=== PATIENT | male | born 1980 | race Caucasian/White ===

== ENCOUNTER 2017-03-22 00:15 | Inpatient (IN) ==
[2017-03-22] MEDS ORDERED: NS 1,000 ML IV ONE ×2 (03:09→09:45)
[2017-03-22] MEDS ORDERED: SOLU-MEDROL IV ONE (03:10)
[2017-03-22] MEDS ORDERED: BENADRYL IV ONE (03:11)
[2017-03-22] MEDS ORDERED: DUONEB (A & A) INH ONE (03:11)
[2017-03-22] MEDS ORDERED: ZANTAC PO ONE (03:11)
[2017-03-22 05:20] LABS: MANUAL DIFF NEEDED? NO
[2017-03-22 05:40] LABS: AGAP 15; ALBUMIN 3.5 g/dL (3.5-5.0); ALKALINE PHOSPHATASE 46 U/L (32-122); BUN 15 mg/dL (8-22); CALCIUM 7.8 mg/dL (8.8-10.2); CHLORIDE 102 mmol/L (98-107); COSMO 281; GOT 18 U/L (10-34); GPT 34 U/L (10-44); POTASSIUM 4.5 mmol/L (3.5-5.1); SODIUM 139 mmol/L (136-145); TCO2 22 mmol/L (25-35); TOTAL BILIRUBIN 0.32 mg/dL (0.20-1.00); TOTAL PROTEIN 6.5 g/dL (6.3-8.3)
--- NOTE | 2017-03-22 05:50 | EKG Report ---
Test Performed on : 03/22/2017 00:22:35 AM Test Reason : No Order in [facility] Blood Pressure : / mmHG Vent. Rate : 082 BPM Atrial Rate : 082 BPM P-R Int : 144 ms QRS Dur : 082 ms QT Int : 334 ms P-R-T Axes : 028 -02 025 degrees QTc Int : 390 ms Normal sinus rhythm. Minimal voltage criteria for LVH, may be normal variant Borderline ECG No previous ECGs available Unconfirmed Result
[2017-03-22 07:05] LABS: BASO% 0.3 % (0.0-0.8); EOS# 0.03 X1000 (0.0-0.7); EOS% 0.3 % (0.0-10.0); HEMATOCRIT 40.4 % (42.0-52.0); HEMOGLOBIN 13.9 g/dL (14.0-18.0); IMM GRAN# 0.05 X1000 (0.0-0.04); IMM GRAN% 0.5 % (0.0-0.5); LYMPH# 0.97 X1000 (1.2-3.4); LYMPH% 10.2 % (20.5-51.1); MCHC 34.4 g/dL (33-37); MONO% 8.4 % (1.7-9.3); MPV 10.5 FL (7.4-10.4); NEUT% 80.3 % (42.2-75.2); PLT 163 X1000 (130-400); RBC 4.49 XMIL (4.7-6.1)
[2017-03-22 07:25] LABS: URINE CULTURE NEEDED? NO; URINE MICRO REVIEW NEEDED? NO; URINE SOURCE CLEAN CATCH
[2017-03-22 07:29] LABS: ALLEN TEST YES; BE -0.8 mmoll (-3.0-3.0); BLOOD TYPE ARTERIAL; DRAW SITE L RADIAL; METHB 1.4 % (0.0-1.5); MODALITY ROOM AIR; O2(CT) 19.6 mL/dL (15.0-23.0); PCO2(98.6) 30 mmHg (35-45); PO2(98.6) 92 mmHg (60-100); SAMPLE BLOOD; SAO2 98.5 % (95.0-100.0); THB 14.7 g/dL (11.5-17.4); pH(98.6) 7.47 (7.35-7.45)
[2017-03-22 07:29] LABS: BILIRUBIN URINE NEGATIVE (NEGATIVE); BLOOD URINE NEGATIVE (NEGATIVE); COLOR YELLOW; GLUCOSE URINE 150 mg/dL (NEGATIVE); LEUKOCYTES URINE NEGATIVE (NEGATIVE); NITRITE URINE NEGATIVE (NEGATIVE); PROTEIN URINE NEGATIVE (NEGATIVE); SP GRAVITY URINE 1.017; TURBIDITY URINE CLEAR (CLEAR); UROBILINOGEN URINE NORMAL (NORMAL)
[2017-03-22 07:31] LABS: UR EPITHELIAL CELLS <10 /HPF (<10); URINE BACTERIA NEGATIVE /HPF; URINE RBC <10 /HPF (<10); URINE WBC <10 /HPF (<10)
--- NOTE | 2017-03-22 07:34 | Diag Imaging Result Doc PS360 ---
CHEST-PORTABLE - 03/22/2017 INDICATION: allergic reaction, wheezing TECHNIQUE: COMPARISON: None FINDINGS: The lungs are normally expanded and clear. Heart size and mediastinal contours are normal. No pneumothorax or pleural effusion. IMPRESSION: Negative exam. Electronically signed by Ede Quiros 03/22/2017 7:32 AM
[2017-03-22 07:37] LABS: UR AMPHETAMINES QUAL NONE DETECTED (NONE DETECT); UR BARBITUATES QUAL NONE DETECTED (NONE DETECT); UR BENZODIAZEPIN QUAL NONE DETECTED (NONE DETECT); UR CANNABINOIDS QUAL NONE DETECTED (NONE DETECT); UR COCAINE QUAL NONE DETECTED (NONE DETECT); UR METHADONE QUAL NONE DETECTED (NONE DETECT); UR OPIATES QUAL NONE DETECTED (NONE DETECT); UR OXYCODONE QUAL NONE DETECTED (NONE DETECT); UR PCP QUAL NONE DETECTED (NONE DETECT)
[2017-03-22] MEDS ORDERED: LEVAQUIN 750 MG/D5W 750 MG/150 ML IVPB IV ONE (08:21)
[2017-03-22] MEDS ORDERED: VANCOMYCIN 1 GM/NS 1 GM/250 ML IVPB IV ONE (08:21)
[2017-03-22] MEDS ORDERED: ROCEPHIN 1 GM in NS 50 ML IV ONE (09:42)
[2017-03-22] MEDS ORDERED: BENADRYL IV PRN (09:44)
[2017-03-22] MEDS ORDERED: SODIUM CHLORIDE 0.9% INJ SCH (09:45)
[2017-03-22] MEDS: PEPCID IV SCH (09:45)
[2017-03-22] MEDS ORDERED: ZYRTEC LIQUID PO ONE (09:56)
[2017-03-22] MEDS ORDERED: CHLORASEPTIC SPRAY MT PRN (09:58)
[2017-03-22] MEDS: ADVAIR 500/50 DISKUS INH SCH (10:00)
--- NOTE | 2017-03-22 10:56 | HISTORY AND PHYSICAL ---
HISTORY OF PRESENT ILLNESS: This is a 36-year-old. 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 He stated that on Saturday he came home and felt bad, throat was sore but just kind of aching all over and had fever. Fever got up at times. Temperature 102 degrees. They went to the emergency room in [place]. They gave him Z-West and a Medrol Dosepak because of his sore throat, and then he broke out in welts and rash. This rash got a little better but Saturday went back to the emergency room, and they gave him amoxicillin, and I think they gave him some more steroid. Again, he had welts following that and more rash and just has not really gotten better. His throat is sore. It has worsened. He has swelling. Concerned about some apnea. His feels he already has sleep apnea but, with his throat being swollen, she can appreciate a lot more apnea now. In the emergency room, he has pustules in the back of his throat. I did not appreciate cervical adenopathy in either carotid chain, supraclavicular, axillary or femoral, but he appears to have a viral upper respiratory or oral pharyngitis, and its a possibility of herpetic rash. We are going to culture his throat and culture his nasopharynx but put him empirically on some IV Solu-Medrol as well as some H2 blockers. We will also let him have some Benadryl for H1 histamine blockade and put him on acyclovir 10 mg/kg q. 8 hours. I am going to cover him for possible bacterial oral pharyngitis with Rocephin. PAST MEDICAL HISTORY: Pretty unremarkable. No significant medical problems. ALLERGIES: There is a question on these 2 antibiotics that he had with him. I do not think he has a true allergy to them. I am going to avoid the amoxicillin Z-West, but I am not convinced that he has had an allergic reaction to that. SURGICAL HISTORY: He has had bilateral tubes in his ears. SOCIAL HISTORY: He works at [employer]. He does have a dog. He is . No children. They live in [place]. He does smoke about a half pack per day which he has done for 16 years. FAMILY HISTORY: No history of coronary artery disease or of increased respiratory infections or autoimmune disorders. REVIEW OF SYSTEMS: He did not report any weight gain or loss, although he has not eaten or drank very well since Saturday, has just not felt well. No change in his hearing. He has a history of bilateral tubes in the past, tympanoplasty. No change in his vision. Oropharynx: He has about a dozen pustules that vary from 0.3 to 0.6 cm and very tender. Respiratory: He struggles mainly when he is sleeping, but he does feel like his throat is swollen at times, worked to move air, and he does complain of his tongue being swollen and lips were swollen this last week. Cardiovascular: No chest pain or tachy palpitation. GI and : GI: He has not had any gross hematuria, dysuria. : No hematuria and no dysuria reported. Endocrinologic/hematologic. He has no history of thyroid issues or adrenal problems or cortisone deficiency. Skin: As described above, he has had welts and he has a fine erythematous rash over his belly and his legs. PHYSICAL EXAMINATION: VITAL SIGNS: Temperature 98.5 degrees, pulse 80, respirations 20, blood pressure 134/88. HEENT: Pupils are equal, round. Oropharynx: He has about a dozen pustules that vary from 0.3 to 0.6 cm and very tender. LUNGS: Clear in all lung anton. CARDIOVASCULAR: Regular rate without murmur or S3. ABDOMEN: Soft. No hepatojugular reflux. No hepatosplenomegaly. He has little fine erythematous rash over his belly, proximal thighs, around his groin. No urticaria that I can appreciate. No adenopathy. No cervical, axillary, supraclavicular or femoral adenopathy. Lungs are clear in all lung anton is noted. No edema. LABORATORY DATA: White count 9540, hematocrit 40, platelet count 163,000. Chemistry: Sodium 139, potassium 4.5, chloride 102. BUN 15, creatinine 1.1. Liver functions unremarkable. ASSESSMENT AND PLAN: Oral pharyngitis. I suspect this is viral. I could not rule out though Streptococcal group A strep, and he has a little fine rash on his belly and that could be a scarlet-like rash that you could see with Streptococcus. I am going to cover him for herpetic with acyclovir 10 mg/kg q. 8. I am going to give him Rocephin. He was given several antibiotics here in the emergency room. Recently, had some azithromycin and amoxicillin and, we will give him IV Solu-Medrol, IV H2 blockers as well as let him have some Benadryl 50 mg q. 6 hours p.r.n. He has been loaded with Solu-Medrol 125 mg. We will give him 80 mg IV q. 8 hours. Give him fluids and normal saline 125 mL an hour. Culture his throat and nasopharynx. He is moving air fairly well but he has potential for stridor and 4 more swelling in his throat, so I think we have to be aggressive, and I think he needs to be in [facility]. He does also have reports of sleep apnea, and I think as an outpatient he is going to have to have some sleep studies. We will put him on some supplemental O2 for now. I think it would be worthwhile to follow his blood gas and maybe check another tomorrow. Blood gases today: pH was 7.47, pCO2 of 30, PO2 of 92, O2 saturation 98%. Will run normal saline at 125 mL an hour. cc: Alexey Hunter MD
[2017-03-22] MEDS ORDERED: NS 1,000 ML ONE (11:04)
--- NOTE | 2017-03-22 11:35 | Diag Imaging Result Doc PS360 ---
CT NECK W/WO CONTRAST - 03/22/2017 INDICATION: r/o abscess; swollen throat w multiple pustules TECHNIQUE: A CT dose reduction protocol was used. COMPARISON: None FINDINGS: On the noncontrast exam, there are no abnormal calcifications. On the contrast enhanced exam, the lingual tonsils are slightly enlarged bilaterally. No abnormal fluid collections. No surrounding edema. There are some prominent bilateral reactive lymph nodes in the upper cervical chain. The thyroid gland is normal. The airway is clear. The sinuses are clear. IMPRESSION: Tonsillitis. Reactive cervical lymph nodes. No abscess or complication. Electronically signed by Ede Quiros 03/22/2017 11:32 AM
[2017-03-22] MEDS: ZOVIRAX IV SCH ×2 (11:40→20:32)
[2017-03-22] MEDS: NS IV SCH ×2 (11:40→20:32)
[2017-03-22] MEDS: SOLU-MEDROL IV SCH ×2 (12:00→20:10)
[2017-03-22] MEDS ORDERED: LEVAQUIN 750 MG/D5W 750 MG/150 ML IVPB ONE (12:54)
[2017-03-22] MEDS ORDERED: ROCEPHIN ONE (14:36)
[2017-03-22] MEDS ORDERED: NS 50 ML ONE (14:37)
[2017-03-22] MEDS ORDERED: TYLENOL PO PRN (15:14)
[2017-03-22] MEDS: DUONEB (A & A) INH SCH ×4 (15:14→23:28)
[2017-03-22] MEDS ORDERED: ZOFRAN IV PRN (15:14)
[2017-03-23] MEDS: PEPCID IV SCH ×2 (01:27→12:13)
[2017-03-23] MEDS: DUONEB (A & A) INH SCH ×6 (04:02→23:28)
[2017-03-23] MEDS: ZOVIRAX IV SCH ×3 (04:40→20:20)
[2017-03-23] MEDS: NS IV SCH ×3 (04:40→20:20)
[2017-03-23] MEDS: SOLU-MEDROL IV SCH ×3 (04:40→18:30)
[2017-03-23 05:24] LABS: BASO% 0.4 % (0.0-0.8); HEMATOCRIT 41.3 % (42.0-52.0); HEMOGLOBIN 14.2 g/dL (14.0-18.0); IMM GRAN# 0.14 X1000 (0.0-0.04); IMM GRAN% 1.5 % (0.0-0.5); LYMPH# 1.02 X1000 (1.2-3.4); LYMPH% 11.1 % (20.5-51.1); MANUAL DIFF NEEDED? YES; MCH 30.6 PG (27-31); MCHC 34.4 g/dL (33-37); MONO# 1.06 X1000 (0.11-0.59); MONO% 11.5 % (1.7-9.3); NEUT% 75.5 % (42.2-75.2); PLT 173 X1000 (130-400); RBC 4.64 XMIL (4.7-6.1)
[2017-03-23 05:32] LABS: INR 1.01; PROTIME 10.6 Seconds (9.2-11.7); PTT 24.2 Seconds (22.0-36.0)
[2017-03-23 05:35] LABS: HEMOGLOBIN A1C 7.4 % (4.8-6.0)
[2017-03-23 05:39] LABS: BANDS 2 % (0-1); EOS 2 % (1-10); LYMPHS 8 % (21-51); MONO 16 % (1-9)
[2017-03-23 05:41] LABS: AGAP 19; ALBUMIN 3.5 g/dL (3.5-5.0); ALKALINE PHOSPHATASE 47 U/L (32-122); BUN 15 mg/dL (8-22); CALCIUM 8.6 mg/dL (8.8-10.2); CHLORIDE 98 mmol/L (98-107); COSMO 283; GOT 20 U/L (10-34); GPT 38 U/L (10-44); MAGNESIUM 2.2 mg/dL (1.5-2.7); SODIUM 138 mmol/L (136-145); TCO2 21 mmol/L (25-35); TOTAL BILIRUBIN 0.35 mg/dL (0.20-1.00); TOTAL PROTEIN 6.7 g/dL (6.3-8.3)
[2017-03-23 05:59] LABS: FREE T4 0.93 ng/dL (0.93-1.70)
[2017-03-23] MEDS: ADVAIR 500/50 DISKUS INH SCH (07:26)
--- NOTE | 2017-03-23 08:27 | Diag Imaging Result Doc PS360 ---
EXAM: CHEST-2 VIEWS HISTORY: sob TECHNIQUE: Two views the chest COMMENT: There is no evidence of acute cardiac or pulmonary disease. Compared to 03/22/2017 there is been no significant change in the appearance of the chest. IMPRESSION: No acute disease. Electronically signed by Ronal Zuleta 03/23/2017 8:25 AM
[2017-03-23 08:52] LABS: HEPATITIS PROFILE ACUTE SEE COMMENTS
[2017-03-23] MEDS: ROCEPHIN 1 GM in NS 50 ML IV SCH (09:16)
[2017-03-23] MEDS: ZYRTEC LIQUID PO SCH (09:16)
[2017-03-23 09:44] LABS: HIV ANTIBODY SCREEN SEE COMMENTS
--- NOTE | 2017-03-23 10:27 | PROGRESS NOTE ---
DATE: 03/23/2017 SUBJECTIVE: He feels better. Throat feels better. Breathing much better. OBJECTIVE: Vital signs: Temp 97.7, pulse 78, respirations 22, blood pressure 143/91. HEENT: Pupils are equal and round. Lungs: Clear in all lung anton. Cardiovascular: Regular rhythm and rate without murmur or S3. Abdomen: Soft. Skin: Warm and dry. Good urine output. LAB: Unremarkable from yesterday. Renal functions: Serum creatinine is 0.9. ASSESSMENT AND PLAN: 1. Repeated a chest x-ray this morning. No acute disease. No evidence of acute cardiopulmonary disease. There is no significant change in appearance of chest. 2. Throat looks much better. Neck CT was done yesterday. No comparison. Tonsillitis. Reactive cervical lymph nodes, no abscess or complication. Continue IV antibiotics. He had some pustules in the back of the throat. I am going to continue acyclovir for now. The strep test throat culture was negative. Blood cultures are pending. Influenza screen was negative for A and B, so therapy. He may get to go home soon. Marked diminishment in his swelling. cc: Alexey Hunter MD
[2017-03-24] MEDS: ZOVIRAX IV SCH ×2 (03:21→11:59)
[2017-03-24] MEDS: NS IV SCH ×2 (03:21→11:59)
[2017-03-24] MEDS: PEPCID IV SCH ×2 (03:22→12:00)
[2017-03-24] MEDS: SOLU-MEDROL IV SCH ×2 (03:22→11:59)
[2017-03-24] MEDS: DUONEB (A & A) INH SCH ×3 (03:50→11:15)
--- NOTE | 2017-03-24 06:20 | PROGRESS NOTE ---
DATE: 03/24/2017 SUBJECTIVE: Mr. Martinez had a good night. Slept well. His said he is doing much better. Still hurts a little to eat solid food. Oropharynx with marked diminished swelling and irritation. PHYSICAL EXAMINATION: Vital Signs: Temperature 97.7 degrees. He has remained afebrile. Pulse 80. Respirations 18. Blood pressure 142/89. Weight 250 pounds. Eyes: Pupils equal and round. Lungs: Clear in all lung anton. Cardiovascular: Regular rate, without murmur or S3. Abdomen: Soft. Skin: Warm and dry. LABORATORY STUDIES: Urine output 1800 mL. White count 9230, hematocrit 41, platelet count 171,000. Hemoglobin A1c was 7.4. Lipid profile: LDL was 135, HDL was 26. Triglycerides 128. Vitamin B12 of 454. Folate was 7.8. Cortisol level 2.4. ASSESSMENT AND PLAN: 1. Oral pharyngitis. Suspect streptococcal, but could also be viral. His throat culture is pending, but his rapid antigen was negative. Blood cultures have been negative. Continue present orders. He is on it acyclovir, and he is getting ceftriaxone 1 g every 24 hours, methylprednisone. 2. Cortisol level is low, but he is on methylprednisone 8 mg IV q.8 hours. 3. Sleep apnea. He will need to get that followed up as an outpatient. Suspect he has been well enough he can probably go home. Right now, have him on Pepcid 40 mg q.12 hours. He is getting Zyrtec 10 mg p.o. daily. He is getting the acyclovir at 10 mg/kg q.8 hours. cc: Alexey Hunter MD
[2017-03-24] MEDS: ADVAIR 500/50 DISKUS INH SCH (07:16)
[2017-03-24] MEDS: ROCEPHIN 1 GM in NS 50 ML IV SCH (08:44)
[2017-03-24] MEDS: ZYRTEC LIQUID PO SCH (09:54)
[2017-03-24 11:01] VITALS: BP 144/84
--- NOTE | 2017-03-24 15:11 | DISCHARGE SUMMARY ---
ADMISSION DATE: 03/22/2017 DISCHARGE DATE: PRIMARY CARE PHYSICIAN: None. 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 Stated that earlier in the week, on Saturday, I think, this was Saturday when I saw him on Saturday, he felt bad. Throat was sore, just kind of aching all over, had fever. Temperature got up to 102 degrees. Went to emergency room at [place], gave him a Z-Wets, Medrol Dosepak, because of sore throat, and broke out in welts and a rash. The rash got a little better. Saturday, went back to the emergency room and he got amoxicillin and some more steroids, and again broke out in a rash. This time it did not seem to get much better. The rash did improve, but his throat was very sore and swollen, and she brought him here to the emergency room. I could not palpate cervical adenopathy, but you could see soft tissue swelling. Both sides of the throat and posterior pharynx, the hard palate and posterior nasopharynx with little pustules/petechiae. Very red and inflamed around the peritonsillar area. Admitted him. I think he probably had viral oral pharyngitis, but also still could be strep. A rapid strep was negative. We cultured his throat. On throat culture final, there was no strep isolated. I put him on high-dose IV acyclovir 10 mg/kg q.8 hours. We also covered with Rocephin. I told him I am not convinced he has a true allergy to amoxicillin or azithromycin, and I did put him on some steroids, as well as H2 blockers. He showed steady improvement and wanted to go home on 03/24/2017. I am going to discharge him home. I will stop his antibiotics. We will give a Medrol Dosepak, his medication that he took at home. He had no baseline medication or no maintenance medication. I will give him Medrol Dosepak, and we will let him go home. I think this is still most consistent with a viral or pharyngitis. He will he will follow up with [facility], and I will give him a note to go back to work on Saturday. cc: Alexey Hunter MD
--- NOTE | 2017-04-22 05:58 | PROVIDER DOCUMENTATION ---
This chart was entered by Dorys Chavarria Scribe, acting as scribe for Flaco Hernandez MD. HPI-Rash/Wound/ReCheck <Kalen Lunaamarilisdanielle X - Last Filed: 03/22/17 08:34> - General Source: family - History of Present Illness-Dermatology Quality: reports: itchy Severity: reports: mild Onset/Duration: reports: last night Timing: reports: still present Context/Associated Symptoms: reports: rash Identifiable cause?: Yes (amoxicillin) Exposure: reports: allergen exposure Modifying Factors: improves with: antihistamine Locality of Occurance: Home Similar Symptoms Previously?: Yes Recently seen or treated by another doctor?: Yes <Flaco Hernandez - Last Filed: 04/22/17 05:58> - General Chief Complaint: Allergic Reaction Stated Complaint: allergic reaction Time Seen by Provider: 03/22/17 00:47 Allergies/Adverse Reactions: Allergies Allergy/AdvReac Type Severity Reaction Status Date / Time amoxicillin Allergy SWELLING Verified 03/22/17 09:48 azithromycin Allergy SWELLING Verified 03/22/17 09:48 [From Zithromax Z-West] Home Medications: Home Medication List Medication Instructions Recorded Confirmed Last Taken Type Methylprednisolone [Medrol Dosepak] 4 mg PO DIRECTED #20 package 03/24/17 Unknown Rx Phenol 1.4% [place] [Chloraseptic 1 applicatn [place] PRN PRN #90 bottle 03/24/17 Unknown Rx Living[place]] - History of Present Illness-Dermatology Nature of Presenting Problem: 36 year old M presents to the ED with a cc of an allergic reaction. PT was seen at [facility] Saturday and taken off Z-west for similar and placed on Amoxicillin. PT took his first dose at 0900 morning and had some itching. PT took his second dose at 2200 and broke out into hives, itching, and trouble breathing. PT was given 25 mg of Benadryl by EMS [employer]. PT c/o swelling to tongue and throat. (Dorys Chavarria) 36 year old M presents to the ED with a cc of an allergic reaction. PT was seen at [facility] Saturday and taken off Z-west for similar and placed on Amoxicillin. PT took his first dose at 0900 morning and had some itching. PT took his second dose at 2200 and broke out into hives, itching, and trouble breathing. PT was given 25 mg of Benadryl by EMS [employer]. PT c/o swelling to tongue and throat. (Flaco Hernanedz) Review of Systems - Adult - REVIEW OF SYSTEMS - ADULT Constitutional: reports: no symptoms reported <Yelitza Lunadanielle Kay - Last Filed: 03/22/17 08:34> - REVIEW OF SYSTEMS - ADULT Constitutional: denies: chills, fever Eyes: reports: no symptoms reported Ears, Nose, Mouth & Throat: reports: throat swelling. denies: mouth swelling Cardiovascular: reports: no symptoms reported Respiratory: denies: cough, shortness of breath Gastrointestinal: denies: nausea, vomiting Genitourinary: denies: dysuria, hematuria Musculoskeletal: denies: bone pain, muscle aches Integumentary: reports: itching, rash. denies: skin sores/ulcer, skin thickening Neurological: reports: no symptoms reported Psychiatric: reports: no symptoms reported Endocrine: reports: no symptoms reported Hematologic/Lymphatic: reports: no symptoms reported Allergic/Immunologic: reports: no symptoms reported All Other Systems: Reviewed and Negative <Flaco Hernandez - Last Filed: 04/22/17 05:58> Past History - Adult - PAST MEDICAL HISTORY-ADULT Review of Records: reports: Old Records Reviewed <Kalen Lunakerri Villanueva - Last Filed: 03/22/17 08:34> - PAST MEDICAL HISTORY-ADULT Review of Records: reports: Nursing Assessment Review, Medications Reviewed Major Childhood Illnesses: reports: denies history Cardiovascular: reports: denies history Respiratory: reports: denies history Gastrointestinal: reports: denies history Genitourinary: reports: denies history Musculoskeletal: reports: denies history Neurological: reports: denies history Endocrine/Immune: reports: denies history Other Conditions: reports: denies history - PRIOR SURGERIES/PROCEDURES Surgical/Procedure History: reports: none - IMMUNIZATION STATUS Childhood Immunizations: See Nurse Assessment Flu Vaccine: See Nurse Assessment - FAMILY HISTORY Family History: reviewed, not pertinent - SOCIAL HISTORY Smoking: cigarettes Provider spent 3-5 mins advising pt. on dangers of tobacco.: Discussed manners to quit use, and f/u contacts for add'l counseling. Substance Use: none/never Alcohol Use Frequency: never Living Situation: family <Flaco Hernandez - Last Filed: 04/22/17 05:58> Physical Exam-General - PHYSICAL EXAM-ADULT Initial Vital Signs Reviewed: Yes - CONSTITUTIONAL General Appearance: alert - HEAD, EARS, NOSE, MOUTH & THROAT HENMT: other (herpetic lesions to posterior throat) - RESPIRATORY Respiratory: wheezing - CARDIOVASCULAR Cardiovascular: normal peripheral pulses, regular rate, rhythm, no edema - GASTROINTESTINAL (ABDOMEN) Abdominal Exam: non tender, soft - SKIN Integumentary: rash (urticarial rash around midline and inner thighs) - PSYCHIATRIC Psych/Mental Status: normal mood/affect, normal thought content, normal thought process, oriented x 3 <Flaco Hernandez - Last Filed: 04/22/17 05:58> Progress - PLAN OF CARE/RESULTS Result Diagrams: 03/22/17 05:15 03/22/17 05:15 - REASSESSMENT Reassessment #1 Time Reassessed: 07:16 Status: unchanged (Took over pt's care at 6AM and he was examined. Reports he was seen at [facility] for URI with fever of 103 X 4 days ago. Was prescribed Z- pack, but he had allergic reaction to it. Went to [facility] X 2 days ago with neg CXR and strep throat test, Abx was switched to Amoxi, But after taking it for 2 doses, he had more allergic reaction to it. SOB with wheezing and throat swelling. Called 911. reports his temp was 101 lat night. When examined, pt was still wheezing and lethargic after IV Benadryl. Will check temp - I noticed no temp charted till now.) Reassessment #2 Time Reassessed: 08:17 Status: unchanged (Pt has possible sleep apnea. SO2 dropped to 60s per at his bedside. After waking him up his SO2 increases to 90s. Considering the allergic reaction with throat swelling, and the fever with lactate of 2.3. Abx will be started and IVF will be given.) - CONSULTS/PCP/HOSPITALIST Notification #1 *Consult/PCP/Hospitalist*: Dr. Hunter/Louise Time Discussed: 08:20 Consult Disposition: Will see in ED, Admit <Elsy Luna X - Last Filed: 03/22/17 08:34> - PLAN OF CARE/RESULTS Result Diagrams: 03/23/17 05:04 03/23/17 05:04 - EKG 1 Time of EKG reading by physician:: 00:22 EKG Read and Signed by:: Flaco Hernandez EKG Interpretation (*Must complete 3 of following elements*): Abnormal Rate: 82 Rhythm: NSR QRS: LVH <Flaco Hernandez - Last Filed: 04/22/17 05:58> - PLAN OF CARE/RESULTS Progress/Plan/Lab Results: Orders Category Date Time Status Admit - [facility] Routine AdmDCTranf 03/22/17 15:14 Ordered Activity - Up with Assistance ORDERED Care 03/22/17 15:14 Active Apply Mechanical Device [QM] ORDERED Care 03/22/17 15:14 Active Intake and Output-Strict ORDERED Care 03/22/17 15:14 Active Vital Signs Order Q 4-HR ASSESS Care 03/22/17 15:14 Active Z-Document. for Tele Applied ORDERED Care 03/22/17 15:14 Completed Clear Liquid Diet Diet 03/22/17 09:46 Completed CHEST-2 VIEWS [RAD] Routine Exams 03/23/17 06:00 Completed CHEST-PORTABLE [RAD] Stat Exams 03/22/17 03:[address] NECK W/WO CONTRAST [CT] Stat Exams 03/22/17 10:27 Completed A1C HGB W EST AVG GLUCOSE [CHEM] Routine Lab 03/23/17 05:04 Completed ABG [RESP] Routine Lab 03/22/17 07:15 Completed BLOOD CULTURE [BLDCUL] Stat Lab 03/22/17 07:25 Completed BNP [PRO B-NATRIURETIC PEPTIDE] Stat Lab 03/22/17 05:15 Completed CBC WITH DIFF [HEME] Routine Lab 03/23/17 05:04 Completed CBC WITH ELECTRONIC DIFF [HEME] Stat Lab 03/22/17 05:15 Completed CK TOTAL [CHEM] Routine Lab 03/22/17 16:55 Completed CMP [COMPREHENSIVE METABOLIC PANEL] [CHEM] Stat Lab 03/22/17 05:15 Completed COMPREHENSIVE METABOLIC PANEL [CHEM] Routine Lab 03/23/17 05:04 Completed CORTISOL Routine Lab 03/23/17 05:04 Completed DIRECT STREP Stat Lab 03/22/17 09:55 Completed FOLATE Routine Lab 03/23/17 05:04 Completed FREE T4 Routine Lab 03/23/17 05:04 Completed HEPATITIS PROFILE [HH] Stat Lab 03/22/17 10:03 Completed HIV AB SCREEN [HH] Routine Lab 03/22/17 10:03 Completed INFLUENZA SCREEN A/B Stat Lab 03/22/17 09:58 Completed LIPID PROFILE W/DIR LDL [LIPIDS] Routine Lab 03/23/17 05:04 Completed MAGNESIUM [CHEM] Routine Lab 03/23/17 05:04 Completed MONO SCREEN [SERO] Stat Lab 03/22/17 05:15 Completed PROTIME WITH INR [COAG] Routine Lab 03/23/17 05:04 Completed PTT [COAG] Routine Lab 03/23/17 05:04 Completed TROPONIN T Routine Lab 03/22/17 16:55 Completed TSH Routine Lab 03/23/17 05:04 Completed UA NIMS W/REFLEX CULT [URINALYSIS] Stat Lab 03/22/17 07:10 Completed UDS [URINE DRUG SCREEN] Stat Lab 03/22/17 07:10 Completed VITAMIN B12 Routine Lab 03/23/17 05:04 Completed 0.9% Sodium Chloride Inj [Ns] 1,000 ml Med 03/22/17 11:04 Discontinued .ROUTE As Directed 0.9% Sodium Chloride Inj [Ns] 1,000 ml Med 03/22/17 09:45 Discontinued IV 125 mls/hr 0.9% Sodium Chloride Inj [Ns] 1,000 ml Med 03/22/17 03:09 Discontinued IV 999 mls/hr Acetaminophen [Tylenol] Med 03/22/17 15:14 Discontinued 650 mg PO Q6H PRN PRN Acyclovir [Zovirax] 400 mg Med 03/22/17 09:45 Discontinued 0.9% Sodium Chloride Inj [Ns] 100 ml IV Q8H Albuterol 2.5MG/Ipratrop 0.5MG [Duoneb (A & A)] Med 03/22/17 15:14 Discontinued 3 ml INH RTQ4H Albuterol 2.5MG/Ipratrop 0.5MG [Duoneb (A & A)] Med 03/22/17 03:11 Discontinued 6 ml INH NOW ONE CefTRIAXONE [Rocephin] 1 gm Med 03/22/17 09:42 Discontinued 0.9% Sodium Chloride Inj [Ns] 50 ml IV NOW CefTRIAXONE [Rocephin] 1 gm Med 03/23/17 09:45 Discontinued 0.9% Sodium Chloride Inj [Ns] 50 ml IV Q24H Cetirizine [Zyrtec Liquid] Med 03/23/17 09:00 Discontinued 10 mg PO DAILY Cetirizine [Zyrtec Liquid] Med 03/22/17 09:56 Discontinued 10 mg PO NOW ONE Diphenhydramine [Benadryl] Med 03/22/17 09:44 Discontinued 25 mg IV Q4H PRN PRN Diphenhydramine [Benadryl] Med 03/22/17 03:11 Discontinued 50 mg IV NOW ONE Famotidine [Pepcid] Med 03/22/17 09:45 Discontinued 40 mg IV Q12H Fluticasone/Salmet 500/50 INH [Advair 500/50 Diskus] Med 03/22/17 10:00 Discontinued 1 puff INH DAILY Levofloxacin 750 mg/D5w [Levaquin 750 mg/D5w] Med 03/22/17 08:21 Discontinued 750 mg in 150 ml IV NOW Methylprednisolone Sod Succ [Solu-Medrol] Med 03/22/17 03:10 Discontinued 125 mg IV NOW ONE Methylprednisolone Sod Succ [Solu-Medrol] Med 03/22/17 11:00 Discontinued 80 mg IV Q8H Ondansetron [Zofran] Med 03/22/17 15:14 Discontinued 4 mg IV Q4H PRN PRN Phenol 1.4% [place] [Chloraseptic [place]] Med 03/22/17 09:58 Discontinued See Dose Instructions MT PRN PRN Ranitidine [Zantac] Med 03/22/17 03:11 Discontinued 300 mg PO NOW ONE Sodium Chloride 0.9% Med 03/22/17 09:45 Discontinued 5 - 10 ml INJ DIRECTED Vancomycin 1 gm/Ns Med 03/22/17 08:21 Discontinued 1 gm in 250 ml IV NOW Aerosol Treatments Routine Oth 03/22/17 03:12 Completed Aerosol Treatments Routine Oth 03/22/17 15:14 Completed Aerosol Treatments Stat Ot 03/22/17 03:12 Completed MDI Treatments Stat Ot 03/22/17 10:01 Completed Oxygen Device Routine Oth 03/22/17 15:14 Completed Pulse Oximetry Routine Oth 03/22/17 15:14 Completed Telemetry [OM.EQ] Routine Oth 03/22/17 15:14 Active EKG [EKG] Routine Ther 03/22/17 00:22 Draft Transfer/Admit Order [TRANSFER] Routine Transfer 03/22/17 09:47 Completed Departure - Departure Date of Disposition Decision: 03/22/17 Time of Disposition Decision: 08:20 Certified Medical Emergency: Emergent - Critical Care Note This patient required my direct & personal management of CC.: Yes Total Time (mins): 35 Critical Care Statement: This patient required my direct personal management to treat or rule out processes, the absence of which, could potentiallly result in sudden, clinically significant life or limb threatening deterioration. <Elsy Luna - Last Filed: 03/22/17 08:34> - Departure Date of Disposition Decision: 03/22/16 Time of Disposition Decision: 08:20 Certified Medical Emergency: Emergent - Critical Care Note This patient required my direct & personal management of CC.: No <Flaco Hernandez - Last Filed: 04/22/17 05:58> - Departure DIAGNOSIS: Fever, Allergic reaction, Hypoxia, sleep related Disposition: ADMITTED INPATIENT 09 Condition: Stable Attestation - Physician/ VON Attestation Patient care was provided by Advanced Practice Provider:: No The physician spent face to face time with patient:: Yes Advanced Practice Provider documentation review:: Supervising physician onsite and consulted in the evaluation and care of this patient. The physician did have a face to face encounter with the patient. <Elsy Luna - Last Filed: 03/22/17 08:34> - Physician/ VON Attestation Patient care was provided by Advanced Practice Provider:: No The physician spent face to face time with patient:: Yes Advanced Practice Provider documentation review:: Supervising physician onsite and consulted in the evaluation and care of this patient. The physician did have a face to face encounter with the patient. <Flaco Hernandez - Last Filed: 04/22/17 05:58> This chart was documented by the indicated scribe, (Dorys Chavarria Scribe) and accurately reflects the services I performed and decisions made by , Flaco Hernandez MD, as attested by the provider's signature.
== END 2017-03-24 15:37 | disposition home or self-care (01) ==
LOC: ED 00:15 → EDIPHOLD 12:44 → 3S 22:29
PROVIDERS: ATTEND Emergency Medicine